=== PATIENT | female | born 1945 | race Two or more races ===

== ENCOUNTER 2017-11-15 06:16 | Inpatient (IN) | payer MEDICARE, BC ==
[~2017-11-15] VITALS: Ht 157.5 cm; Wt 60.3 kg
[2017-11-15] VITALS (11 sets, daily range): BP systolic 82–135; BP diastolic 45–75
[2017-11-15] MEDS ORDERED: ceFAZolin sod 2 GM in D5W 110 ML IVPB ONE (07:00)
[2017-11-15] MEDS ORDERED: ATORVASTATIN CA20 MG ORAL (07:09)
[2017-11-15] MEDS ORDERED: PAXIL20 MG ORAL (07:09)
[2017-11-15] MEDS ORDERED: AMLODIPINE BESYL5 MG ORAL (07:09)
[2017-11-15] MEDS ORDERED: CELEBREX100 MG ORAL (07:09)
[2017-11-15] MEDS ORDERED: Thrombin 5000 units TOPIC ONE (07:17)
[2017-11-15] MEDS ORDERED: Bupivacaine 0.5% Inj 30 ml vial INJ ONE (07:17)
[2017-11-15] MEDS ORDERED: Thrombin 5000 units spray kit TOPIC ONE (07:18)
[2017-11-15] MEDS ORDERED: Bacitracin 50000 Units Vial ONE (07:18)
[2017-11-15] MEDS ORDERED: Gelfoam Absorbable 1gm powder pkt TOPIC ONE (07:18)
[2017-11-15] MEDS ORDERED: Lidocaine 1% 10mg/ml/EPI 0.01mg/ml 50ml INJ ONE (07:18)
[2017-11-15 07:32] LABS: INR 0.9 (0.9-1.1)
[2017-11-15] MEDS ORDERED: Clindamycin 600mg 50 ML IV ONE (07:32)
--- NOTE | 2017-11-15 07:41 | Pre-Procedure Note/Attestation ---
Pre-Procedure Note/Attestation Complete Prior to Procedure Procedure Narrative: L34 R laminectomy and discectomy Indications for Procedure Pre-Operative Diagnosis: L34 HNP with radiculopathy Attestation I attest that I discussed the nature of the procedure; its benefits; risks and complications; and alternatives (and the risks and benefits of such alternatives ), prior to the procedure, with the patient (or the patient's legal education courses sales representative). I attest that, if there was a reasonable possibility of needing a blood transfusion, the patient (or the patient's legal education courses sales representative) was given the [facility] standardized written summary, pursuant to the Koby Daljit Blood Safety Act ([place] Health and Safety Code # 1645, as amended). I attest that I re-evaluated the patient just prior to the surgery and that there has been no change in the patient's H&P, except as documented below: MEHUL MIRANDA Nov 15, 2017 07:41
[2017-11-15] MEDS ORDERED: LR 1000ml 1,000 ML IVLG SCH (08:51)
[2017-11-15] MEDS ORDERED: LR 1000ml 1,000 ML IV SCH (09:00)
[2017-11-15] MEDS ORDERED: DiphenhydrAMINE 50mg/ml Inj IVP PRN (09:00)
[2017-11-15] MEDS ORDERED: LORazepam Inj 2mg/ml 1ml IV PRN (09:00)
[2017-11-15] MEDS ORDERED: Hydromorphone 0.5mg/0.5ml inj IVP PRN (09:00)
[2017-11-15] MEDS ORDERED: Meperidine 50mg/ml Inj(FOR RIGORS ONLY) IVP ONE (09:00)
--- NOTE | 2017-11-15 09:02 | Anethesia Preoperative Eval ---
Anesthesia Pre-op PMH/ROS General Date of Evaluation: Nov 15, 2017 Time of Evaluation: 07:25 Anesthesiologist: Alysia ASA Score: ASA 3 Mallampati Score Class I : Soft palate, uvula, fauces, pillars visible Class II: Soft palate, uvula, fauces visible Class III: Soft palate, base of uvula visible Class IV: Only hard plate visible Mallampati Classification: Class II Surgeon: Rylan Diagnosis: Disc displacement Surgical Procedure: Lumbar micro discectomy and laminectomy right L3-4 Family History: no anesthesia problems Allergies: Coded Allergies: CEPHALEXIN (Verified Allergy, Severe, 11/15/17) SKIN RASH Medications: see eMAR Past Medical History Cardiovascular: Reports: HTN, Denies: CAD, DC, valve dz, arrhythmia, other Pulmonary: Denies: asthma, COPD, ROBERT, other Gastrointestinal/Genitourinary: Denies: GERD, CRI, ESRD, other Neurologic/Psychiatric: Denies: dementia, CVA, depression/anxiety, TIA, other Endocrine: Denies: DM, hypothyroidism, steroids, other HEENT: Reports: cataract (L), cataract (R) Hematology/Immune: Denies: anemia, DVT, bleeding disorder, other Musculoskeletal/Integumentary: Denies: OA, RA, DJD, DDD, edema, other PMH Narrative: HTN, hypercholesterolemia PSxH Narrative: Cholecystectomy, juan colectomy, cataract, Ab Anesthesia Pre-op Phys. Exam Physician Exam Last Vital Signs Date Time Temp Pulse Resp B/P (MAP) Pulse Ox O2 Delivery O2 Flow Rate FiO2 11/15/17 07:03 97.7 75 20 135/75 98 Room Air Constitutional: NAD Neurologic: CN 2-12 intact Cardiovascular: RRR, no M/R/G Respiratory: CTA Gastrointestinal: S/NT/ND Airway Exam Mallampati Score: Class II MO: full ROM: full Teeth: intact Anesthesia Pre-op A/P Labs Coagulation Test 11/15/17 06:45 Prothrombin Time 9.5 SEC (9.30-11.50) Prothromb Time International Ratio 0.9 (0.9-1.1) Activated Partial Thromboplast Time 28 SEC (23-33) Studies Pre-op Studies: EKG - NSR, CXR - NAD, other - Rubidium gated PET scan- normal, EF 71% Risk Assessment & Plan Assessment: No contraindication for surgical lumbar laminectomy Plan: Nikolay ROYAL monitor Status Change Before Surgery: No Pre-Antibiotics Drug: Clinda Given Within 1 Hr of Incision: Yes Time Given: 07:45 ROGELIO HUTCHINS M.D. Nov 15, 2017 09:02
--- NOTE | 2017-11-15 09:04 | Immediate Post-Op Evaluation ---
Immediate Post-Op Evalulation Immediate Post-Op Evalulation Procedure: Lumbar laminectomy and discectomy Date of Evaluation: Nov 15, 2017 Time of Evaluation: 10:55 IV Fluids: 1100 Blood Pressure Systolic: 82 Blood Pressure Diastolic: 55 Pulse Rate: 82 Respiratory Rate: 14 O2 Sat by Pulse Oximetry: 100 Temperature (Fahrenheit): 97.8 Pain Score (1-10): 0 Nausea: No Vomiting: No Complications No complication Patient Status: reacts, patent, extubated, none Hydration Status: adequate Drug: Clinda Given Within 1 Hr of Incision: Yes Time Given: 07:45 ROGELIO HUTCHINS M.D. Nov 15, 2017 09:03
[2017-11-15] MEDS ORDERED: Metoclopramide 10mg/2ml Inj IVP PRN (10:15)
[2017-11-15] MEDS ORDERED: traMADol 50mg tab ORAL PRN (10:15)
--- NOTE | 2017-11-15 10:28 | Brief Operative Note ---
Immediate Post Operative Note Operative Note Pre-op Diagnosis: L34 HNP with radiculopathy Procedure: L34 laminectomy and discectomy dural repair Post-op Diagnosis: same as pre-op plus - dural rent Findings: consistent w/pre-op dx studies Surgeon: sami Plan Coordinator: juarez HURLEY Anesthesiologist: nataliia Anesthesia: general Specimen: none Complications: yes - dural rent Condition: stable Fluids: 1100 Estimated Blood Loss: minimal Drains: none Implant(s) used?: No MEHUL MIRANDA Nov 15, 2017 10:28
[2017-11-15] MEDS ORDERED: Naloxone 0.4mg/ml Inj IVP PRN (13:30)
[2017-11-15] MEDS ORDERED: HYDROcodone/Acetamin 7.5/325 tab ORAL PRN (13:30)
[2017-11-15] MEDS ORDERED: Norco 5mg/325mg tab ORAL PRN (13:30)
[2017-11-15] MEDS: D5 1/2NS 1,000 ML IV SCH (14:13)
[2017-11-15] MEDS: Clindamycin 600mg 50 ML IV SCH ×2 (14:13→20:44)
--- NOTE | 2017-11-15 14:28 | Diagnostic Imaging Report ---
Indication: Lumbar localization Comparison: None Findings: Single crosstable lateral fluoroscopic view of the lumbar spine was obtained. Instrumentation noted posterior to L3-4. IMPRESSION: Intraoperative imaging
[2017-11-15] MEDS: Hydromorphone 0.5mg/0.5ml inj IVP PRN ×2 (17:33→20:45)
[2017-11-15] MEDS: Docusate Sod/Senna tab ORAL SCH (17:33)
[2017-11-15] MEDS ORDERED: Chloraseptic Spray 20mL Bottle ORAL ONE (21:30)
[2017-11-15] MEDS: Chloraseptic Spray 20mL Bottle ORAL PRN (21:53)
[2017-11-16] VITALS: BP 116/72
[2017-11-16] MEDS: D5 1/2NS 1,000 ML IV SCH ×3 (00:57→20:09)
[2017-11-16] MEDS: Hydromorphone 0.5mg/0.5ml inj IVP PRN ×7 (01:19→23:58)
[2017-11-16] MEDS: Clindamycin 600mg 50 ML IV SCH ×2 (02:50→10:32)
[2017-11-16] MEDS: Chloraseptic Spray 20mL Bottle ORAL PRN ×3 (03:30→23:34)
[2017-11-16 04:00] VITALS: BP 100/63
[2017-11-16 08:00] VITALS: BP 100/67
--- NOTE | 2017-11-16 08:45 | Orthopedic Spine Progress Note ---
Ortho Spine - Progress Note Subjective Symptoms: c/o post-op neck pain, c/o post-op back pain, other - no headache Objective Vital Signs: Last 24 Hour Vital Signs Date Time Temp Pulse Resp B/P (MAP) Pulse Ox O2 Delivery O2 Flow Rate FiO2 11/16/17 05:41 98.0 11/16/17 04:00 97 Room Air 11/16/17 04:00 99.3 99 19 100/63 97 11/16/17 00:00 99.4 105 19 116/72 92 11/16/17 00:00 92 Room Air 11/15/17 21:16 98.0 11/15/17 20:00 98 Room Air 11/15/17 20:00 97.7 94 19 115/75 98 11/15/17 12:04 98.0 11/15/17 12:00 98.0 99 13 103/63 100 Nasal Cannula 3.0 11/15/17 11:45 96 18 99/58 100 Nasal Cannula 3.0 11/15/17 11:34 100 15 108/63 100 Nasal Cannula 3.0 11/15/17 11:25 97 16 100/62 100 Nasal Cannula 3.0 11/15/17 11:15 94 20 97/51 100 Nasal Cannula 3.0 11/15/17 11:05 100 17 101/56 100 Nasal Cannula 3.0 11/15/17 10:55 89 20 88/53 100 Simple Mask 6.0 11/15/17 10:52 82 14 100 11/15/17 10:50 87 23 82/49 100 Simple Mask 6.0 11/15/17 10:45 97.8 84 22 82/45 100 Simple Mask 6.0 I&O: Intake and Output 11/15/17 11/16/17 19:00 07:00 Intake Total 2200 ml 1800 ml Output Total 2040 ml 1350 ml Balance 160 ml 450 ml Intake Oral 700 ml IV Total 2200 ml 1100 ml Output Urine Total 2000 ml 1350 ml Estimated Blood Loss 40 ml # Voids 2 Wound: clean, intact Drains: none Assessment Procedure Performed: L34 laminectomy and discectomy dural repair Plan Additional Comments: continue bedrest MEHUL MIRANDA Nov 16, 2017 08:45
[2017-11-16] MEDS: Docusate Sod/Senna tab ORAL SCH ×2 (08:53→17:11)
--- NOTE | 2017-11-16 09:42 | Operative Note - Dictated ---
DATE OF OPERATION: 11/15/2017 SURGEON: Wu Fagan M.D. GRAIN CLEANER AND TRANSFER OPERATOR: Nicolas Fraser PA-C ANESTHESIOLOGIST: Koby Hatfield M.D. ANESTHESIA TYPE: General endotracheal anesthesia. PREOPERATIVE DIAGNOSES: 1. L3-L4 disc extrusion with spinal stenosis L3-L4. 2. Radiculopathy, right lower extremity. POSTOPERATIVE DIAGNOSES: 1. L3-L4 disc extrusion with spinal stenosis, L3-L4. 2. Radiculopathy, right lower extremity. 3. Dural rent, L3-L4. OPERATION PERFORMED: 1. Laminectomy, right side L3 and superior portion of L4. 2. Discectomy, L3-L4 as well as removal of extruded disc fragment, L3-L4. 3. Medial facetectomy, L3-L4. 4. Dural repair using operating microscope, L3-L4. 5. Use of fluoroscopy for localization purposes. ESTIMATED BLOOD LOSS: Minimal. COMPLICATIONS: Dural rent. FLUIDS: 1100. INDICATIONS: The patient is a very pleasant woman with intractable radiculopathic pain down the right lower extremity. MRI confirmed disc extrusion at the L3-L4 level and moderately severe spinal stenosis at L3-L4. The patient does have a scoliotic deformity at L3-L4 as conservative care failed, surgical intervention was recommended and she elected to proceed. RISK NOTE: The patient was explained in detail the risks and benefits of surgery to include, but not be limited to those of bleeding, infection, damage to nerves, vessels, tendons, anesthetic risk, allergic reaction, aspiration, and possibly . The patient understood and wished to proceed. INTRAOPERATIVE FINDINGS: Severe spinal stenosis, L3-L4 with marked thinning of the dural matter due to chronic stenosis and adhesions. OPERATIVE PROCEDURE IN DETAIL: The patient was taken to the operative suite. After general endotracheal anesthesia was obtained, she was turned prone onto a Zach frame. The back was prepped and draped in the usual sterile fashion. At this point, under fluoroscopic guidance, L3-L4 level was marked and identified. At this point, a midline incision was carried out at L3 and L4. This was performed on the right side. An oblique approach was required due to the notable scoliotic deformity. At this point, care was taken to avoid injury to facet joints. Under microscopic visualization, after self-retaining retractors were put in place, laminectomy was performed of L3 and superior portion of L4. The nerve sac was clearly very compressed and very friable. At this point, the nerve sac was gently retracted medially. The disc extrusion was identified and this was removed in a piecemeal fashion after the posterior longitudinal ligament was incised. At this point, there was clearly an extension into the disc space and an annulotomy was also performed and loose disc fragments were removed from the disc space. At this point, the nerve root retractor was removed and there was a blush of CSF, and in all likelihood at the time of retraction of the nerve root, it resulted in a puncture of the dura mater on a free edge of bone. At this point, three sutures were placed into the 2 or 3 punctate areas of dural tear using 6-0 Prolene. The repair was essentially watertight, however, the dura was so friable that at the site of needle placement for suture placement, there was minimal CSF blush. Copious irrigation was performed. Valsalva was performed with essentially a watertight seal. DuraGen was applied and Tisseel was applied. A fascial repair was performed using #1 Vicryl, subcutaneous closure using 2-0 Vicryl. Monocryl as well as Dermabond was applied. The patient was then turned onto her back. Tucker catheter was placed due to the need for several days of head of bed flat bed rest and the patient was awakened and transferred to the recovery room in stable condition. Wu Fagan M.D. DR: CYDNEY JOB#: [id number] CC:
--- NOTE | 2017-11-16 09:43 | Consultation ---
DATE OF CONSULTATION: 11/15/2017 ACUTE PAIN CONSULTATION CONSULTING PHYSICIAN: Cayetano Meier M.D. REFERRING PHYSICIAN: Wu Fagan M.D. REASON FOR CONSULTATION: Acute pain consult. HISTORY OF PRESENT ILLNESS: Dear Dr. Wu Fagan: Thank you kindly for consulting me to evaluate and render an opinion as to how to proceed in the management of the patient's acute postoperative lumbar spine pain after lumbar spine surgery today, complicated by intraoperative dural leak. You consulted me to help with this patient's pain control. I saw the patient at the bedside. We performed a detailed history and physical examination. I devised the following analgesic plan, after I saw the patient at the bedside with the nurse RN, Apurva, the patient's daughter and granddaughter. I reviewed the medical record in detail, which included advanced directives. PAST MEDICAL HISTORY: 1. Acute postoperative lumbar spine pain, status post lumbar spine surgery by Dr. Wu Fagan, November 2017. 2. Elderly age. 3. Depression. 4. Hypertension. 5. Hypercholesterolemia. 6. Recurrent diverticulitis. PAST SURGICAL HISTORY: 1. Open cholecystectomy 1974. 2. Laparoscopic sigmoid colectomy 2012. MEDICATIONS: At home Paxil 20 mg daily, Celebrex 100 mg, Zocor, and Norvasc. ALLERGIES: Keflex. SOCIAL HISTORY: The patient accompanied at the bedside by her daughter and granddaughter. She denies tobacco, alcohol, or marijuana or illicit drug use. REVIEW OF SYSTEMS: Per attending physician. FAMILY HISTORY: Noncontributory. PHYSICAL EXAMINATION: VITAL SIGNS: Age 71, height 5 feet 2 inches, weight 136 pounds, and body mass index 24. Vital signs, afebrile, pulse 94, respirations 18, blood pressure 115/75, and oxygen saturation 98%. HEENT: Normocephalic and atraumatic. BREASTS: Deferred. CARDIAC: Deferred to attending. PULMONARY: Deferred to attending. GENITOURINARY: Tucker catheter in place. Deferred to the hospitalist. EXTREMITIES: Moving all extremities x4. A 5/5 dorsiflexion and 5/5 plantar flexion in the bilateral lower extremities. BACK: Lumbar dressing appears clean and dry. Pain with logrolling. NEUROLOGIC: Alert and oriented x3. LABORATORY STUDIES: On 11/10/2017, shows white count 11, hematocrit 44, and platelets 273,000. Glucose 53, sodium 142, potassium 4.7, chloride 100, bicarb 24, BUN 16, creatinine 0.7, and calcium 10.4. Total bilirubin 0.4. Total protein 7.1, albumin 4.4. Alkaline phosphatase 80, AST 21, and ALT 16. Urinalysis negative. A 12-lead EKG shows normal sinus rhythm, no evidence for acute cardiac ischemia. Ventricular rate 79. Cardiac myocardial perfusion. PET/CT scan showed ejection fraction greater than 70%. Normal left ventricular size and function. Preoperative chest x-ray shows normal exam. IMPRESSION: 1. Acute postoperative lumbar spine pain, status post lumbar spine surgery by Dr. Wu Fagan, November 2017. 2. Elderly age. 3. Depression. 4. Hypertension. 5. Hypercholesterolemia. 6. Recurrent diverticulitis. TREATMENT AND RECOMMENDATIONS: I have made the following recommendations to help with this patient's pain control postoperatively. I have set up a tiered regimen of analgesics. I will start the patient on a parental Dilaudid 0.5 mg intravenously every two hours p.r.n. for severe pain. As her diet is advanced, I would trial her on [place] 10/325 one tablet orally every three hours p.r.n. for mild pain; followed by 7.5 mg orally every three hours p.r.n. for more moderate pain. The patient did not use marijuana or alcohol. She does not appear to be anxious. I have restarted her Paxil for mood stabilization, but would hold off on benzodiazepine at this time as her family states that she hopefully will not need anxiolytics. The patient is to remain on flat bed rest due to dural leak repair, procedure by Dr. Fagan. In case of any headache symptoms, I have ordered Fioricet one tablet orally every eight hours p[address]n. Dr. Oliveros has ordered Diamox 250 mg orally b.i.d. to help with the dural leak repair. The patient is complaining of sore throat. I have asked the nurse Apurva to place a bottle of Chloraseptic spray at the bedside. In case of any itching symptoms, I have ordered 50 mg orally every eight hours p.r.n. The patient does use Tylenol PM frequently at home, which is a Benadryl. She likely has some considerable tachyphylaxis to Benadryl already. I have ordered Zofran 4 mg intravenously every four hours as a rescue nausea agent. I will empirically place the patient on Protonix 40 mg nightly for GI ulcer prophylaxis. I have ordered p.r.n. dose of Mylanta 30 mL every six hours for any GERD symptom exacerbation. Dr. Fagan, has already appropriately placed the patient on sequential compression pneumatic devices for DVT prophylaxis. Dr. Oliveros has also permitted the patient's using incentive spirometer, encouraged good pulmonary toilet. I did demonstrate proper usage of this incentive spirometer to the patient and her family to encourage good pulmonary toilet and help reduce the risk of postoperative pneumonia and atelectasis while she remains on bed rest for 72 hours. At the time of discharge, the patient will need a prescription for oral analgesics. Cayetano Meier M.D. DR: CHRISTIE JOB#: [id number] CC:
[2017-11-16] MEDS: PARoxetine 20mg tab ORAL SCH (10:32)
--- NOTE | 2017-11-16 11:19 | 48 Hour Post Anesthesia Eval ---
Post Anesthesia Evaluation Procedure: Lumbar laminectomy and discectomy Date of Evaluation: Nov 16, 2017 Blood Pressure Systolic: 100 0: 63 Pulse Rate: 99 Respiratory Rate: 19 Temperature (Fahrenheit): 99.3 O2 Sat by Pulse Oximetry: 97 Airway: patent Nausea: No Vomiting: No Pain Intensity: 2 Hydration Status: adequate Cardiopulmonary Status: at baseline Mental Status/LOC: patient returned to baseline Post-Anesthesia Complications: 0 Follow-up care needed: N/A - further care as per ROSALINA Vieyra M.D. Nov 16, 2017 11:19
[2017-11-16] MEDS ORDERED: NORCO 5-325 TA1 EAC1 ORAL (11:45)
[2017-11-16] MEDS ORDERED: COLACE100 MG ORAL (11:47)
[2017-11-16 12:00] VITALS: BP 108/61
[2017-11-16 16:00] VITALS: BP 126/77
[2017-11-16 20:00] VITALS: BP 126/67
[2017-11-17] VITALS (7 sets, daily range): BP systolic 108–152; BP diastolic 63–88
[2017-11-17] MEDS: Hydromorphone 0.5mg/0.5ml inj IVP PRN ×3 (03:59→16:01)
[2017-11-17] MEDS: D5 1/2NS 1,000 ML IV SCH ×2 (05:58→16:01)
[2017-11-17] MEDS: HYDROcodone/Acetamin 7.5/325 tab ORAL PRN (06:03)
[2017-11-17] MEDS: PARoxetine 20mg tab ORAL SCH (08:49)
[2017-11-17] MEDS: Docusate Sod/Senna tab ORAL SCH ×2 (08:49→17:53)
--- NOTE | 2017-11-17 13:00 | Orthopedic Spine Progress Note ---
Ortho Spine - Progress Note Subjective Symptoms: c/o post-op neck pain, c/o post-op back pain Objective Vital Signs: Last 24 Hour Vital Signs Date Time Temp Pulse Resp B/P (MAP) Pulse Ox O2 Delivery O2 Flow Rate FiO2 11/17/17 12:00 98.9 86 19 108/68 96 11/17/17 09:19 97.0 11/17/17 08:00 Room Air 11/17/17 08:00 98.3 86 19 137/79 98 11/17/17 04:00 100.2 98 20 115/67 95 11/17/17 00:00 100.0 105 18 109/65 96 11/16/17 20:00 100.0 103 18 126/67 97 11/16/17 16:00 97.0 99 17 126/77 98 I&O: Intake and Output 11/16/17 11/17/17 19:00 07:00 Intake Total 1900 ml 1140 ml Output Total 2800 ml 1850 ml Balance -900 ml -710 ml Intake Oral 700 ml 240 ml IV Total 1200 ml 900 ml Output Urine Total 2800 ml 1850 ml Wound: clean, intact Drains: none Neuro Status: stable Assessment Procedure Performed: L34 laminectomy and discectomy dural repair Plan Plan: discharge plan Additional Comments: cont flat in bedrest. sitting protocol in MEHUL Conteh Nov 17, 2017 13:00
[2017-11-17] MEDS: Cyclobenzaprine 10mg Tab ORAL PRN (14:03)
--- NOTE | 2017-11-17 19:30 | Progress Note ---
DATE: 11/17/2017 ACUTE PAIN MANAGEMENT PHYSICIAN PROGRESS NOTE MEDICATIONS: Medication administration record reviewed. Medications include Tylenol, Fioricet, Diamox, Mylanta, Benadryl, [place], Dilaudid, milk of magnesia, Demerol, Narcan, Zofran, Protonix, Paxil, Chloraseptic spray, and Elaina-Colace. LABORATORY STUDIES: No interval laboratory studies. PHYSICAL EXAMINATION: VITAL SIGNS: Afebrile, pulse 86, respirations 19, blood pressure 137/79, and oxygen saturation 98% on room air. I saw the patient at bedside with her daughter. I discussed the case with the nurse RN, Devora. I spoke with the surgeon, Dr. Fagan. The patient remains on flat bed rest to aid CSF-leak healing. The patient has been flat on bed rest for 48 hours and will continue flat for another 24 hours, tomorrow after 72 hours of flat bed rest, the patient will be trialed on sitting up to see if she has any CSF leaking symptoms such as severe frontal or occipital headache pains. If the patient does tolerate the head of bed elevation, then she likely will be transferred to rehabilitation per the surgeon. The patient has been using her incentive spirometer. She had sequential compression pneumatic devices for DVT prophylaxis. Vital signs are stable. She has good social support at the bedside by family. The patient does have several flights of stairs at home and states that she is unable to return home at this time. The current analgesic plan seems adequate for her pain complaints. She has primarily been using extra-strength Vicodin or hydrocodone 7.5 mg tablets, which seem to be adequately controlling her pain. I will continue this current regimen Chloraseptic spray for sore throat complaints. Cayetano Meier M.D. DR: DARRIAN JOB#: [id number] CC:
[2017-11-18 00:03] VITALS: BP 147/85
[2017-11-18] MEDS: Hydromorphone 0.5mg/0.5ml inj IVP PRN ×2 (00:56→06:19)
[2017-11-18] MEDS: D5 1/2NS 1,000 ML IV SCH ×3 (01:18→21:09)
[2017-11-18 04:58] VITALS: BP 147/89
[2017-11-18 08:46] VITALS: BP 146/82
[2017-11-18] MEDS: Docusate Sod/Senna tab ORAL SCH ×2 (10:22→17:52)
[2017-11-18] MEDS: HYDROcodone/Acetamin 7.5/325 tab ORAL PRN ×3 (10:22→21:10)
[2017-11-18] MEDS: PARoxetine 20mg tab ORAL SCH (10:23)
--- NOTE | 2017-11-18 11:48 | Orthopedic Spine Progress Note ---
Ortho Spine - Progress Note Subjective Symptoms: c/o post-op neck pain, c/o post-op back pain Objective Vital Signs: Last 24 Hour Vital Signs Date Time Temp Pulse Resp B/P (MAP) Pulse Ox O2 Delivery O2 Flow Rate FiO2 11/18/17 08:46 98.2 97 20 146/82 97 11/18/17 04:58 98.9 95 18 147/89 97 11/18/17 00:03 98.7 95 18 147/85 97 11/17/17 21:35 98.5 100 148/85 11/17/17 20:00 98 20 152/88 98 11/17/17 16:31 98.9 11/17/17 16:00 99.1 88 20 113/63 98 11/17/17 16:00 Room Air 11/17/17 15:02 98.9 11/17/17 12:00 Room Air 11/17/17 12:00 98.9 86 19 108/68 96 I&O: Intake and Output 11/17/17 11/18/17 19:00 07:00 Intake Total 1890 ml 1560 ml Output Total 1800 ml 950 ml Balance 90 ml 610 ml Intake Oral 990 ml 360 ml IV Total 900 ml 1200 ml Output Urine Total 1800 ml 950 ml # Voids 1 Drains: none Neuro Status: stable Assessment Procedure Performed: L34 laminectomy and discectomy dural repair Plan Plan: PT, pain management, discharge plan Additional Comments: start sitting protocol MEHUL MIRANDA Nov 18, 2017 11:48
[2017-11-18 11:50] VITALS: BP 143/84
--- NOTE | 2017-11-18 16:00 | Progress Note ---
DATE: 11/18/2017 ACUTE PAIN MANAGEMENT PHYSICIAN PROGRESS NOTE MEDICATIONS: Medication administration record reviewed. Medications include Elaina-Colace, Chloraseptic, Paxil, Protonix, Zofran, Narcan, Demerol, milk of magnesia, Dilaudid, [place], Benadryl, Flexeril, Mylanta, Diamox, Fioricet, Tylenol. PHYSICAL EXAMINATION: VITAL SIGNS: Afebrile, pulse 97, respirations 20, blood pressure 146/82, and oxygen saturation 97%. LABORATORY STUDIES: No interval laboratory studies. I saw the patient at bedside with the nurse RN, Dilma. I discussed the case with the physical therapist. The surgeon, Dr. Oliveros evaluated the patient earlier this morning. She was serially sat-up to 90 degrees. The patient had no symptoms of headaches, which demonstrates proof of adequate healing of her CSF-leak. After 72 hours of flat bed rest, the patient will now start ambulating with physical therapy. The p.r.n. pain medications remain available in case if her pain increases with ambulation. She has been tolerating the IV Dilaudid and [place] without any adverse side effects. The patient has been restarted on her Paxil for mood stabilization. The rn case mgr is working with transfer the patient to [place] [facility] once the patient is cleared for discharge from the surgeon, Dr. Fagan. I would encourage incentive spirometer usage for good pulmonary toilet along with DVT prophylaxis per the surgeon. Cayetano Meier M.D. DR: JEYSON JOB#: [id number] CC:
[2017-11-18 16:27] VITALS: BP 126/73
[2017-11-18] MEDS: Milk of Magnesia 30ml Ud ORAL PRN (16:39)
[2017-11-18 20:00] VITALS: BP 130/74
[2017-11-18] MEDS: Cyclobenzaprine 10mg Tab ORAL PRN (21:10)
[2017-11-19] VITALS: BP 121/73
[2017-11-19 04:00] VITALS: BP 132/79
[2017-11-19] MEDS: D5 1/2NS 1,000 ML IV SCH ×2 (07:30→17:09)
[2017-11-19] MEDS: HYDROcodone/Acetamin 7.5/325 tab ORAL PRN (07:55)
[2017-11-19 08:00] VITALS: BP 140/81
[2017-11-19] MEDS: PARoxetine 20mg tab ORAL SCH (10:07)
[2017-11-19] MEDS: Docusate Sod/Senna tab ORAL SCH ×2 (10:07→17:09)
[2017-11-19 12:00] VITALS: BP 135/77
--- NOTE | 2017-11-19 15:45 | Progress Note ---
DATE: 11/19/2017 ACUTE PAIN MANAGEMENT PHYSICIAN PROGRESS NOTE MEDICATIONS: Medication administration record reviewed. Medications include Elaina-Colace, Chloraseptic, Paxil, Protonix, Zofran, Narcan, Demerol, milk of magnesia, Dilaudid, [place], Benadryl, Flexeril, Mylanta, Diamox, Fioricet and Tylenol. LABORATORY AND DIAGNOSTIC DATA: No interval laboratory studies. Vital signs within normal limits, afebrile, pulse 85, respirations 18, blood pressure 132/79 and oxygen saturation 99% on room air. I saw the patient. I discussed the case with the nurse RN, Page. I discussed the case with the surgeon, Dr. Fagan. The residential case manager has been trying to coordinate transferring the patient to [facility]. However, yesterday there was no bed available at the [facility]. I have asked the nurse to contact the residential case manager once again to help expedite the transfer. Clinically, the patient seems quite stable. She has been using p.r.n. doses of Flexeril and [place] with excellent efficacy and analgesia. Her family provides excellent social support and assistance with activities of daily living. The patient is slowly progressing with ambulation as tolerated. I see no contraindication for transfer when a rehabilitation bed is available at [facility]. While she is here at [facility], I would continue her present analgesic course. Cayetano Meier M.D. DR: JEYSON JOB#: [id number] CC:
[2017-11-19 16:00] VITALS: BP 120/62
[2017-11-19] MEDS: Milk of Magnesia 30ml Ud ORAL PRN (17:09)
[2017-11-19] MEDS: Hydromorphone 0.5mg/0.5ml inj IVP PRN (18:02)
[2017-11-19] MEDS ORDERED: Tubing IV Secondary IV ONE (18:11)
[2017-11-19] MEDS ORDERED: D5 1/2NS 1000ml IV ONE ×3 (18:11→18:53)
[2017-11-19 20:00] VITALS: BP 123/63
[2017-11-20 00:10] VITALS: BP 110/64
[2017-11-20] MEDS: Hydromorphone 0.5mg/0.5ml inj IVP PRN ×3 (01:06→08:59)
[2017-11-20] MEDS: D5 1/2NS 1,000 ML IV SCH (01:06)
[2017-11-20 04:51] VITALS: BP 131/68
[2017-11-20] MEDS: Milk of Magnesia 30ml Ud ORAL PRN (06:11)
[2017-11-20 08:00] VITALS: BP 123/65
[2017-11-20] MEDS: Docusate Sod/Senna tab ORAL SCH (08:41)
[2017-11-20] MEDS: PARoxetine 20mg tab ORAL SCH (08:42)
[2017-11-20] MEDS ORDERED: NORCO1 E1 ORAL (11:30)
[2017-11-20] MEDS ORDERED: CYCLOBENZAPRINE10 MG ORAL (11:30)
[2017-11-20] MEDS ORDERED: PROTONIX40 MG ORAL (11:31)
[2017-11-20] MEDS ORDERED: BENADRYL25 MG ORAL (11:33)
[2017-11-20] MEDS ORDERED: TYLENOL650 MG/20. ORAL (11:41)
--- NOTE | 2017-11-20 11:55 | Orthopedic Spine Progress Note ---
Ortho Spine - Progress Note Subjective Symptoms: c/o post-op back pain Objective Vital Signs: Last 24 Hour Vital Signs Date Time Temp Pulse Resp B/P (MAP) Pulse Ox O2 Delivery O2 Flow Rate FiO2 11/20/17 08:00 98.8 84 18 123/65 99 Room Air 11/20/17 04:51 97.8 82 18 131/68 98 Room Air 11/20/17 00:10 98.6 90 18 110/64 99 Room Air 11/19/17 21:45 98.1 11/19/17 20:00 99.1 81 18 123/63 95 Room Air 11/19/17 16:00 98.2 83 20 120/62 95 Room Air 11/19/17 12:00 97.2 79 17 135/77 99 I&O: Intake and Output 11/19/17 11/20/17 19:00 07:00 Intake Total 1560 ml 1360 ml Balance 1560 ml 1360 ml Intake Oral 660 ml 360 ml IV Total 900 ml 1000 ml # Voids 1 3 Wound: clean, intact Drains: none Neuro Status: stable Assessment Procedure Performed: L34 laminectomy and discectomy dural repair Plan Plan: PT, pain management, discharge plan MEHUL MIRANDA Nov 20, 2017 11:55
[2017-11-20 12:00] VITALS: BP 111/65
[2017-11-20] MEDS: HYDROcodone/Acetamin 7.5/325 tab ORAL PRN (13:27)
[2017-11-20] MEDS ORDERED: D5 1/2NS 1000ml IV ONE (14:19)
--- NOTE | 2017-11-22 08:40 | Discharge Summary ---
Discharge Summary Hospital Course Date of Admission Nov 15, 2017 at 06:16 Date of Discharge Nov 20, 2017 at 14:20 Admitting Diagnosis L3-L4 disc extrusion with spinal stenosis Radiculopathy, right lower extremity. Reason for Hospitalization: elective surgery HPI Agus Goode is a 71 year old female who was admitted on Nov 15, 2017 at 06: 16 for L3-L4 disc extrusion with spinal stenosis and radiculopathy, right lower extremity. Patient was admitted for elective surgery Procedures s/p 11/15/[address] Fagan 1. Laminectomy, right side L3 and superior portion of L4. 2. Discectomy, L3-L4 as well as removal of extruded disc fragment, L3-L4. 3. Medial facetectomy, L3-L4. 4. Dural repair using operating microscope, L3-L4. 5. Use of fluoroscopy for localization purposes. Hospital Course s/p surgery bed rest for 72 hrs pain management pain specialist follows SCD for mechanical DVT prophayxlis GI prophylaxis wound clean/intact, no drain no headache neurovascular stable IS while in the bed (patient was demonstrated and taught how to use effectively) after 72hr - sitting trial, no headache, no sx of CSF leakage started to work with PT fall precautions diet as tolerated , a/emetic prn voided freely home medications resumed patient was stable for discharge to [facility] for further rehabilitation FINAL DIAGNOSIS 1. L3-L4 disc extrusion with spinal stenosis 2. Radiculopathy, right lower extremity. 3. Dural rent, L3-L4. 4. s/p lumbar laminectomy and discectomy AL3-L4 with dural repair 5, HTN 6. Hyperlipemia 7. Depression Discharge Medications Continued Medications: Acetaminophen (Acetaminophen) 650 Mg/20.3 Ml Solution 650 MG ORAL Q6H PRN for Prn Headache/Temp > 101, ML 0 Refills Acetaminophen/Hydrocodone ([place] 7.5-325 Tablet) 1 Each Tablet 1 TAB ORAL Q4H PRN for For Pain, TAB 0 Refills Amlodipine Besylate* (Amlodipine Besylate*) 5 Mg Tablet 5 MG ORAL DAILY, TAB Atorvastatin Calcium* (Atorvastatin Calcium*) 20 Mg Tablet 10 MG ORAL BEDTIME, TAB Celecoxib* (Celebrex*) 100 Mg Capsule 100 MG ORAL DA, CAP Cyclobenzaprine Hcl* (Flexeril*) 10 Mg Tablet 10 MG ORAL THREE TIMES A DAY PRN for Muscle Spasm, TAB Diphenhydramine Hcl* (Benadryl*) 25 Mg Capsule 50 MG ORAL Q8H PRN for Itching, CAP Pantoprazole* (Protonix*) 40 Mg Tablet.dr 40 MG ORAL DAILY, TAB Paroxetine Hcl* (Paxil*) 20 Mg Tablet 20 MG ORAL DAILY, TAB 0 Refills Discharge Condition Upon Discharge: stable Discharge Disposition Patient was discharged to Acute [facility]Unit(62[facility] Discharge Diagnoses: Discharge Instructions Discharge Instructions Special Instructions I have been assigned to complete a D/C Summary on this account. I was not involved in the patient management Pee Botello)Louann NP Nov 22, 2017 08:40
== END 2017-11-20 14:20 | DRG 519 ==
LOC: SDSOVERFLO 06:16 → 3E 12:13
DX: M51.16 Intervertebral disc disorders with radiculopathy, lumbar region (principal); G97.41 Accidental puncture or laceration of dura during a procedure; I10 Essential (primary) hypertension; M48.062 Spinal stenosis, lumbar region with neurogenic claudication; F32.9 Major depressive disorder, single episode, unspecified; E55.9 Vitamin D deficiency, unspecified; E78.00 Pure hypercholesterolemia, unspecified; G89.18 Other acute postprocedural pain; M19.90 Unspecified osteoarthritis, unspecified site
CPT/HCPCS: 36415; 72020; 76000; 85610; 85730; 86850; 86900; 86901; 87081; 94003; 94150; C9399; J2405; S0077